=== PATIENT | female | born 1970 | race Caucasian/White ===

== ENCOUNTER 2017-04-17 21:22 | Emergency (ER) | payer SELFPAY ==
--- NOTE | 2017-04-17 22:41 | NUR ---
PATIENT LEFT WITHOUT BEING SEEN BY DR. MEMBRENO. NO FURTHER CARE PROVIDED FOR PATIENT.
== END 2017-04-17 22:42 | disposition left against medical advice (07) ==
LOC: MED 21:22
DX: Z53.21 Procedure and treatment not carried out due to patient leaving prior to being seen by health care provider (principal)

== ENCOUNTER 2017-10-03 21:20 | Emergency (ER) | payer OTHER ==
[~2017-10-03] VITALS: Ht 177.8 cm; Wt 93.0 kg
[2017-10-03 21:22] VITALS: BP 151/90
[2017-10-03] MEDS ORDERED: traMADol 50 MG TAB PO ONE (22:05)
[2017-10-03 22:40] VITALS: BP 141/87
== END 2017-10-03 22:40 | disposition home or self-care (01) ==
LOC: MED 21:20
DX: S93.491A Sprain of other ligament of right ankle, initial encounter (principal); I10 Essential (primary) hypertension; V49.49XA Driver injured in collision with other motor vehicles in traffic accident, initial encounter; Y93.89 Activity, other specified; Y92.488 Other paved roadways as the place of occurrence of the external cause; Y99.8 Other external cause status
CPT/HCPCS: 73610; 99284

== ENCOUNTER 2017-11-27 06:15 | Emergency (ER) | payer OTHER ==
[~2017-11-27] VITALS: Ht 177.8 cm; Wt 90.7 kg
[2017-11-27 06:22] VITALS: BP 110/85
[2017-11-27] MEDS ORDERED: IBUPROFEN 800 MG TAB PO ONE (07:00)
--- NOTE | 2017-11-27 07:32 | NUR ---
PATIENT PRESENTS TO ED WITH LEFT FOOT PAIN . PT STATES SHE TRIPPED AND FELL DOWN THE STAIRS INJURING LEFT INDEX TOE AND LEFT FOOT. LEFT INDEX TOE IS SWOLLEN AND BRUISED, NO OBVIOUS DEFORMITY NOTED, LEFT FOOT HAS GOOD CIRCULATION. DENIES N/V/D; SKIN IS PINK/WARM/DRY; AAOX4 ; LUNGS CLEAR BL; HR EVEN AND REGULAR; PT DENIES ANY FEVER, CP, SOB, AT THIS TIME; PATIENT STATES PAIN OF 9/10 AT THIS TIME; VSS; PATIENT POSITIONED FOR COMFORT; HOB ELEVATED; BEDRAILS UP X1; BED DOWN. FAMILY AT BEDSIDE. ER MD MADE AWARE OF PT STATUS.
[2017-11-27 07:48] VITALS: BP 110/85
--- NOTE | 2017-11-27 07:48 | NUR ---
Patient discharged with v/s stable. Written and verbal after care instructions given and explained. Patient alert, oriented and verbalized understanding of instructions. Wheel Chair Assisted with to car. All questions addressed prior to discharge. ID band removed. Patient advised to follow up with PMD. Rx of NORCO AND IBUPROFEN given. POST OP SHOE PLACED ON LEFT FOOT. Patient educated on indication of medication including possible reaction and side effects. Opportunity to ask questions provided and answered.
== END 2017-11-27 07:48 | disposition home or self-care (01) ==
LOC: MED 06:15
DX: S93.602A Unspecified sprain of left foot, initial encounter (principal); I10 Essential (primary) hypertension; X50.1XXA Overexertion from prolonged static or awkward postures, initial encounter; Y93.89 Activity, other specified; Y92.89 Other specified places as the place of occurrence of the external cause; Y99.8 Other external cause status
CPT/HCPCS: 73630; 99284

== ENCOUNTER 2018-04-27 14:36 | Emergency (ER) | payer OTHER ==
[~2018-04-27] VITALS: Ht 177.8 cm; Wt 98.4 kg
[2018-04-27 14:40] VITALS: BP 148/85
--- NOTE | 2018-04-27 14:45 | NUR ---
PT AMBULATES TO BED 2, REPORT GIVEN TO CRISTIAN TORRES
--- NOTE | 2018-04-27 15:00 | NUR ---
PATIENT PRESENTS TO ED WITH C/O RT FACIAL/SWELLING PAIN WITH DIZZINESS, NAUSEA SINCE LAST NIGHT AFTER EATING TOOTSIE ROLL; REFERRED BY HER DENTIST . PATIENT STATES PAIN OF 10/10 AT THIS TIME; VSS; PATIENT POSITIONED FOR COMFORT; HOB ELEVATED; BEDRAILS UP X2; BED DOWN. ER MD MADE AWARE OF PT STATUS.
[2018-04-27] MEDS ORDERED: NACL 0.9% 1,500 ML IV SCH (15:30)
[2018-04-27] MEDS ORDERED: DEXAMETHASONE 10 MG/ML VIAL IVP ONE (15:30)
[2018-04-27] MEDS ORDERED: fentaNYL 0.05 MG/ML VIAL IVP ONE (15:30)
[2018-04-27] MEDS ORDERED: PIPERACILLIN/TAZOBACTAM 3.375 GM in DEXT 5% MINI-BAG PLUS 50 ML IV ONE (15:30)
[2018-04-27] MEDS ORDERED: PIPERACILLIN/TAZOBACTAM 3.375 GM VIAL IV ONE (16:10)
[2018-04-27 16:16] LABS: BASOPHILS # (AUTO) 0.1 K/uL (0.00-0.22); BASOPHILS % (AUTO) 0.5 % (0.0-2.0); EOSINOPHILS # (AUTO) 0.1 K/uL (0-0.4); EOSINOPHILS % (AUTO) 0.5 % (0.0-4.0); HEMATOCRIT 28.9 % (36-48); HEMOGLOBIN 8.2 g/dL (12.0-16.0); LYMPHOCYTES # (AUTO) 1.4 K/uL (2.5-16.5); LYMPHOCYTES % (AUTO) 10.1 % (20.5-51.1); MEAN CORPUSCULAR HEMOGLOBIN 17 pg (27-31); MEAN CORPUSCULAR HGB CONC 29 g/dL (33-37); MEAN CORPUSCULAR VOLUME 57.9 fL (80-94); MONOCYTES % (AUTO) 7.4 % (1.7-9.3); NEUTROPHILS % (AUTO) 81.5 % (42.2-75.2); PLATELET COUNT (AUTO) 397 K/uL (140-450); RED CELL DISTRIBUTION WIDTH 17.7 % (11.6-13.7); WHITE BLOOD COUNT (AUTO) 13.5 K/uL (4.8-10.8)
--- NOTE | 2018-04-27 16:19 | NUR ---
PT IS OFF UNIT FOR CT VIA GURNEY BY PRICE CLERK.
[2018-04-27 16:34] LABS: ANION GAP 13.4 (8-16); CARBON DIOXIDE 26.9 mmol/L (21-32); CREATININE 0.7 mg/dL (0.6-1.3); POTASSIUM 3.3 mmol/L (3.5-5.1)
[2018-04-27 16:39] LABS: ALBUMIN 3.6 g/dL (3.4-5.0); TOTAL BILIRUBIN 1.2 mg/dL (0.0-1.0)
--- NOTE | 2018-04-27 17:50 | NUR ---
NOT ABLE TO COLLECT URINE AT THIS TIME DUE TO PT COULD NOT GO, ER AWARE, IT IS OK NOT COLLECTED.
[2018-04-27 17:51] VITALS: BP 148/85
--- NOTE | 2018-04-27 17:51 | NUR ---
Patient discharged with v/s stable. Written and verbal after care instructions given and explained. Patient alert, oriented and verbalized understanding of instructions. Ambulatory with steady gait. All questions addressed prior to discharge. ID band removed. IV SITE REMOVED. Patient advised to follow up with PMD. Rx of FIORICET, TRAMADOL, clindamycin given. Patient educated on indication of medication including possible reaction and side effects. Opportunity to ask questions provided and answered.
== END 2018-04-27 17:51 | disposition home or self-care (01) ==
LOC: MED 14:36
DX: K04.7 Periapical abscess without sinus (principal); J34.1 Cyst and mucocele of nose and nasal sinus
CPT/HCPCS: 36415; 70450; 70486; 71045; 80053; 81025; 83605; 85025; 85610; 85730; 87040; 96365; 96375; 99285; J1100; J2543; J3010; J7060